=== PATIENT | female | born 1990 ===

== ENCOUNTER → 2019-06-04 | Outpatient (CLI) | payer OTHER | LOC: MHCPAIN 14:41 | DX: G89.29 Other chronic pain (principal); M47.812 Spondylosis without myelopathy or radiculopathy, cervical region | CPT/HCPCS: G0463 ==

== ENCOUNTER → 2019-06-27 | Outpatient (CLI) | payer OTHER | LOC: MHCPAIN 12:59 | DX: M47.812 Spondylosis without myelopathy or radiculopathy, cervical region (principal); M54.12 Radiculopathy, cervical region ==